=== PATIENT | female | born 1960 | race Caucasian/White ===

== ENCOUNTER 2016-07-27 09:56 | Outpatient (CLI) | payer OTHER ==
[2015-05-18 10:24] VITALS: BMI 38.8
[2016-07-27 12:48] LABS: BASOPHILS # (AUTO) 0.1 K/uL (0-0.2); BASOPHILS % (AUTO) 0.9 % (0.0-3.0); EOSINOPHILS # (AUTO) 0.1 K/ul (0.0-0.7); EOSINOPHILS % (AUTO) 1.6 % (0.0-7.0); HEMATOCRIT 38.4 % (37.0-47.0); HEMOGLOBIN 12.8 g/dl (12.0-16.0); IMMATURE GRANULOCYTE % (AUTO) 0.1 % (0.0-5.0); LYMPHOCYTES # (AUTO) 1.2 K/uL (0.60-3.4); LYMPHOCYTES % (AUTO) 14.1 (10.0-50.0); MEAN CORPUSCULAR HEMOGLOBIN 28.4 pg (27.0-31.0); MEAN CORPUSCULAR HGB CONC 33.3 (31.8-35.4); MEAN CORPUSCULAR VOLUME 85.1 fl (81.0-99.0); MONOCYTES # (AUTO) 0.9 K/uL (0.4-2.0); MONOCYTES % (AUTO) 10.2 (0-10); NEUTROPHILS # (AUTO) 6.4 K/ul (2.0-6.9); NEUTROPHILS % (AUTO) 73.1; PLATELET COUNT 265 10^3/uL (140-440); RED BLOOD COUNT 4.51 10^6/ul (4.20-5.40); WHITE BLOOD COUNT 8.79 K/ul (4.6-10.2)
[2016-07-27 13:36] LABS: ALBUMIN 3.7 g/dL (3.4-5.0); ALBUMIN/GLOBULIN RATIO 0.97; ANION GAP 11.4; BILIRUBIN,TOTAL 0.53 mg/dL (0.00-1.20); BUN/CREATININE RATIO 20.27; CALCIUM 10.5 mg/dL (8.2-10.2); CHOL/HDL RATIO 4.1 (4.5-5.5); CREATININE 0.74 mg/dL (0.60-1.30); POTASSIUM 3.4 mmol/L (3.5-5.10); TOTAL PROTEIN 7.5 g/dL (6.4-8.2)
== END 2016-07-27 09:57 | disposition home or self-care (01) ==
LOC: LAB 09:56
PROVIDERS: ATTEND Emergency Medicine
DX: E78.5 Hyperlipidemia, unspecified (principal); I10 Essential (primary) hypertension; M19.90 Unspecified osteoarthritis, unspecified site
CPT/HCPCS: 36415; 80053; 80061; 84439; 84443; 85025

== ENCOUNTER 2016-07-29 13:36 | Emergency (ER) ==
[2016-07-29 13:41] VITALS: BP 205/133; TEMP 97.7; BMI 36.8
[2016-07-29] MEDS ORDERED: VASOTEC IV IVP STA (13:51)
[2016-07-29] MEDS ORDERED: TRANDATE IVP STA (13:52)
[2016-07-29] MEDS ORDERED: NORVASC PO STA (13:52)
[2016-07-29 14:11] LABS: BASOPHILS # (AUTO) 0.1 K/uL (0-0.2); BASOPHILS % (AUTO) 0.6 % (0.0-3.0); EOSINOPHILS # (AUTO) 0.1 K/ul (0.0-0.7); EOSINOPHILS % (AUTO) 0.8 % (0.0-7.0); HEMATOCRIT 35.7 % (37.0-47.0); IMMATURE GRANULOCYTE % (AUTO) 0.2 % (0.0-5.0); LYMPHOCYTES % (AUTO) 11.8 (10.0-50.0); MEAN CORPUSCULAR HEMOGLOBIN 28.6 pg (27.0-31.0); MEAN CORPUSCULAR HGB CONC 33.6 (31.8-35.4); MONOCYTES # (AUTO) 0.9 K/uL (0.4-2.0); MONOCYTES % (AUTO) 10.5 (0-10); NEUTROPHILS # (AUTO) 6.5 K/ul (2.0-6.9); NEUTROPHILS % (AUTO) 76.1; PLATELET COUNT 240 10^3/uL (140-440)
[2016-07-29 14:51] LABS: ALBUMIN 3.7 g/dL (3.4-5.0); ALBUMIN/GLOBULIN RATIO 1.09; ANION GAP 12.3; BILIRUBIN,TOTAL 0.72 mg/dL (0.00-1.20); BUN/CREATININE RATIO 17.33; CALCIUM 10.3 mg/dL (8.2-10.2); CREATININE 0.75 mg/dL (0.60-1.30); POTASSIUM 3.3 mmol/L (3.5-5.10); TOTAL PROTEIN 7.1 g/dL (6.4-8.2); TROPONIN I 0.046 ng/ml (0.0000-0.4000)
[2016-07-29] MEDS ORDERED: APRESOLINE PO STA (14:56)
[2016-07-29 15:44] LABS: BILIRUBIN,URINE 1+ (NEGATIVE); KETONES,URINE 2+ (NEGATIVE); LEUKOCYTE ESTERASE ,URINE Trace (NEGATIVE); NITRITE,URINE Negative (NEGATIVE); PROTEIN,URINE 1+ (NEGATIVE); URINE, BLOOD Trace-intact (NEGATIVE)
[2016-07-29 15:45] LABS: ADD URINE MICROSCOPIC YES
--- NOTE | 2016-07-29 16:00 | ED.PDOC ---
General ED Provider: Dr. ASTRID SANDRA-ER Chief Complaint: Hypertension Stated Complaint: my bp is up--i was seen by dr pretty and given 2 little pills Time Seen by Physician: 13:40 Mode of Arrival: Walk-In Information Source: Patient Exam Limitations: No limitations [facility] and Triage Documentation Reviewed and Agree: Yes Cardiovascular Complaint Exam - Hypertension Complaint/Exam Onset/Duration: today Timing: Constant Reported B/P Prior to Arrival: 230/130 Aggravating: Reports: None Alleviating: Reports: None Associated Signs and Symptoms: Denies: Chest pain, Vision changes, Anxiety, Recent stress, Headache, Numbness, Tingling, Weakness, Dizziness, Short of air, Swelling Related History: Reports: Similar episode Cardiac Risk Factors: Reports: Hypertension Recent Change in Medications: No A/V Nicking: No Papilledema Present: No JVD Present: No Carotid Bruit Present: No Femoral Pulses Bounding: Yes Differential Diagnoses: Hypertension, Hypertensive Crisis Quality Indicator For Non-Traumatic Chest Pain/Syncope: EKG Performed Review of Systems - Review Of Systems Constitutional: Reports: No symptoms Eyes: Reports: No symptoms Ears, Nose, Mouth, Throat: Reports: No symptoms Respiratory: Reports: No symptoms Cardiac: Reports: No symptoms, Chest pain GI: Reports: No symptoms : Reports: No symptoms Musculoskeletal: Reports: No symptoms Skin: Reports: No symptoms Neurological: Reports: No symptoms Endocrine: Reports: No symptoms Hematologic/Lymphatic: Reports: No symptoms All Other Systems: Reviewed and Negative Past Medical History - Past Medical History Previously Healthy: Yes Endocrine: Reports: None Cardiovascular: Reports: Hypertension, CHF Respiratory: Reports: COPD Hematological: Reports: None Gastrointestinal: Reports: None Genitourinary: Reports: None Neuro/Psych: Reports: Migraine Musculoskeletal: Reports: None Cancer: Reports: None Last Menstrual Period: N/A - Surgical History General Surgical History: Reports: (x2), Orthopedic ( Left Knee Surgery) - Family History Family History: Reports: Unknown - Social History Smoking Status: Never smoker Hx Substance Use: No Alcohol Screening: None Lives: With family - Immunizations Tetanus Shot up to Date: Yes Physical Exam - Physical Exam Appearance: Well-appearing, No pain distress, Well-nourished Eyes: ALLEGRA, EOMI, Conjunctiva clear ENT: Ears normal, Nose normal, Oropharynx normal Neck: Supple Respiratory: Airway patent, Breath sounds clear, Breath sounds equal, Respirations nonlabored Cardiovascular: RRR, Pulses normal, No rub, No murmur GI/: Soft, Nontender, No masses, Bowel sounds normal, No Organomegaly Musculoskeletal: Normal strength, ROM intact, No edema, No calf tenderness Skin: Warm, Dry, Normal color Neurological: Sensation intact, Motor intact, Reflexes intact, Cranial nerves intact, Alert, Oriented Psychiatric: Affect appropriate, Mood appropriate Re-Evaluation - Re-Evaluation Time of Re-Evaluation: 15:59 Status: Improved (bp 160/90--denies cp or lynch) Vital Signs Stable: Yes Pain Level: 0 Appearance: NAD Lungs: Clear Skin: Warm and Dry Neuro: Alert and Oriented X3 CV: RRR Critical Care Note - Critical Care Note Total Time (mins): 0 Course - Course Hematology/Chemistry: 07/29/16 13:55 07/29/16 13:55 Orders, Labs, Meds: Lab Review 07/29/16 07/29/16 13:55 15:30 WBC 8.50 RBC 4.20 Hgb 12.0 Hct 35.7 L MCV 85.0 MCH 28.6 MCHC 33.6 RDW Coeff of Jada 13.6 Plt Count 240 Immature Gran % (Auto) 0.2 Neut % (Auto) 76.1 Lymph % (Auto) 11.8 [place] % (Auto) 10.5 H Eos % (Auto) 0.8 Baso % (Auto) 0.6 Immature Gran # (Auto) 0.0 Neut # 6.5 Lymph # 1.0 [place] # 0.9 Eos # 0.1 Baso # 0.1 Sodium 143 Potassium 3.3 L Chloride 106 Carbon Dioxide 28 Anion Gap 12.3 BUN 13 Creatinine 0.75 Estimated GFR (MDRD) 80.00 BUN/Creatinine Ratio 17.33 Glucose 94 Calcium 10.3 H Total Bilirubin 0.72 AST 24 ALT 25 Alkaline Phosphatase 164 H Total Creatine Kinase 102 Troponin I 0.0460 Total Protein 7.1 Albumin 3.7 Globulin 3.4 Albumin/Globulin Ratio 1.09 TSH 0.726 Free T4 1.17 Urine Color Yellow Urine Clarity Clear Urine pH 6.0 Ur Specific Gerry 1.025 Urine Protein 1+ Urine Glucose (UA) Negative Urine Ketones 2+ Urine Blood Trace-intact Urine Nitrite Negative Urine Bilirubin 1+ Urine Urobilinogen 0.2 Ur Leukocyte Esterase Trace Urine Microscopic RBC 0-2 Urine Microscopic WBC 0-2 Ur Squamous Epith Cells 0-2 Calcium Oxalate Crystal 1+ Orders Category Date Time Status EKG-(ED ONLY) Stat CARDIO 07/29/16 13:51 Completed ED IV/MEDIPORT/POWERPORT .ONCE EMERGENCY 07/29/16 13:51 Active CBC W/ AUTO DIFF Stat LAB 07/29/16 13:55 Completed COMPREHENSIVE METABOLIC PANEL Stat LAB 07/29/16 13:55 Completed CREATINE KINASE Stat LAB 07/29/16 13:55 Completed FREE T4 (FREE THYROXINE) Stat LAB 07/29/16 13:55 Completed THYROID STIMULATING HORMONE Stat LAB 07/29/16 13:55 Completed TROPONIN I Stat LAB 07/29/16 13:55 Completed URINALYSIS C & S IF INDICATED Stat LAB 07/29/16 15:30 Completed 0.9 % Sodium Chloride [Saline Flush] MEDS 07/29/16 13:51 Active 1 syr IVF PRN PRN Amlodipine Besylate [Norvasc] MEDS 07/29/16 13:52 Discontinued 5 mg PO ONCE STA Enalaprilat Dihydrate [Vasotec IV] MEDS 07/29/16 13:51 Discontinued 2.5 mg IVP ONCE STA Hydralazine HCl [Apresoline] MEDS 07/29/16 14:56 Discontinued 50 mg PO ONCE STA Labetalol HCl [Trandate] MEDS 07/29/16 13:52 Discontinued 20 mg IVP ONCE STA Medications Generic Name Dose Route Start Last Admin Trade Name Freq PRN Reason Stop Dose Admin Sodium Chloride 1 syr 07/29/16 13:51 07/29/16 14:18 Saline Flush IVF 1 syr PRN PRN Administration To flush IV Discontinued Medications Generic Name Dose Route Start Last Admin Trade Name Freq PRN Reason Stop Dose Admin Amlodipine Besylate 5 mg 07/29/16 13:52 07/29/16 14:18 Norvasc PO 07/29/16 13:53 5 mg ONCE STA Administration Enalaprilat 2.5 mg 07/29/16 13:51 07/29/16 14:21 Vasotec Iv IVP 07/29/16 13:52 2.5 mg ONCE STA Administration Hydralazine HCl 50 mg 07/29/16 14:56 07/29/16 15:16 Apresoline PO 07/29/16 14:57 50 mg ONCE STA Administration Labetalol HCl 20 mg 07/29/16 13:52 07/29/16 14:31 Trandate IVP 07/29/16 13:53 20 mg ONCE STA Administration Vital Signs: Temp Pulse Resp BP Pulse Ox 07/29/16 13:37 97.7 F 85 20 205/133 H 94 L HAY Risk Score HAY Risk Score: Risk Score Odds of by 30D 0 0.1 (0.1-0.2) 1 0.3 (0.2-0.3) 2 0.4 (0.3-0.5) 3 0.7 (0.6-0.9) 4 1.2 (1.0-1.5) 5 2.2 (1.9-2.6) 6 3.0 (2.5-3.6) 7 4.8 (3.8-6.1) Departure - Departure Time of Disposition: 16:00 Disposition: HOME SELF-CARE Discharge Problem: HTN (hypertension) Qualifiers: Hypertension type: essential hypertension Qualifier Code: (I10) Essential ( primary) hypertension Instructions: Chronic Hypertension (ED) Condition: Good Pt referred to PMD for follow-up: Yes Additional Instructions: zestril 20mg q daily #30..procardia xl 30mg q daily 30--f/u with your doctor closely Allergies/Adverse Reactions: Allergies No Known Allergies Allergy (Verified 07/29/16 13:43) Home Medications: Ambulatory Orders 1 [No Reported Medications] 07/29/16 Disposition Discussed With: Patient
== END 2016-07-29 16:16 | disposition home or self-care (01) ==
LOC: ED 13:36
DX: I10 Essential (primary) hypertension (principal); I50.9 Heart failure, unspecified; J44.9 Chronic obstructive pulmonary disease, unspecified
CPT/HCPCS: 36415; 80053; 81001; 82550; 84439; 84443; 84484; 85025; 93005; 93010; 96374; 96375; 99283

== ENCOUNTER 2017-05-11 11:40 | Outpatient (CLI) | END 2017-05-11 11:41 | disposition home or self-care (01) | LOC: RHC-LAB 11:40 | PROVIDERS: ATTEND Emergency Medicine | DX: E78.5 Hyperlipidemia, unspecified (principal); I10 Essential (primary) hypertension; E66.9 Obesity, unspecified | CPT/HCPCS: 36415; 80053; 80061; 84443; 85025 ==

== ENCOUNTER 2017-05-13 09:21 | Outpatient (CLI) ==
--- NOTE | 2017-05-13 09:49 | DI ---
EXAM: PA and lateral views of the chest HISTORY: Acute respiratory infection. COMPARISON: Chest x-ray 02/18/2015 and multiple priors FINDINGS: The cardiomediastinal silhouette is upper limit of normal. There is no pneumothorax or pl eural effusion. There is no consolidation, nodule or mass. There is mild interstitial ground-glass i n the lower lobes predominantly. The osseous structures demonstrate degenerative disease of the spine . IMPRESSION: Mild interstitial predominantly lower lobe ground-glass opacities may represent atypical infection versus edema.
== END 2017-05-13 09:22 | disposition home or self-care (01) ==
LOC: RAD 09:21
PROVIDERS: ATTEND Emergency Medicine
DX: J06.9 Acute upper respiratory infection, unspecified (principal)

== ENCOUNTER 2017-05-15 07:11 | Inpatient (IN) ==
[2017-05-15] MEDS ORDERED: NITROSTAT SL STA (08:46)
--- NOTE | 2017-05-15 09:05 | CT ---
EXAM: CTA chest with contrast HISTORY: Dyspnea TECHNIQUE: Multi-slice transaxial helical PE protocol. Multiplanar MIP and 3D volume rendered image s are provided. COMPARISON: Chest radiograph 05/13/2017. FINDINGS: There are no main, lobar, or segmental pulmonary arterial filling defects.The main pulmonary artery i s mildly enlarged measuring up to 32 mm in diameter. The heart is enlarged. Small to moderate peric ardial effusion is seen measuring up to 1.6 cm in thickness. Enlarged subcarinal lymph node measures 1.5 cm in short axis. Soft tissue thickening at the bilateral perihilum is seen. Visualized thyroid appears unremarkable. There is no axillary adenopathy. Contrast refluxes into the IVC and hepatic veins. The spleen is on the upper limits of normal in size. Otherwise the partially imaged upper abdomen appears unremarkable. Moderate multilevel thoracic endplate osteophytosis is pr esent. Diffuse bilateral ground-glass opacities are seen throughout the lungs. Smooth interlobular septal t hickening is also seen throughout the lungs. Trace bilateral layering pleural effusions is present. Small filling defect in the in the distal trachea is seen. IMPRESSION: 1. No evidence of pulmonary embolus. 2. Congestive heart failure with diffuse bilateral mixed alveolar and interstitial edema. 3. Trace bilateral layering pleural effusions. 4. Cardiomegaly with small to moderate-sized pericardial effusion. 5. Subcarinal adenopathy, likely reactive. 6. Small filling defect in the distal trachea which most likely represents mucous. 7. Other incidental findings as above.
[2017-05-15] MEDS ORDERED: LASIX IVP STA ×2 (09:08→09:14)
--- NOTE | 2017-05-15 09:11 | ED.PDOC ---
General ED Provider: Dr. ASTRID SANDRA-ER Chief Complaint: Shortness of Air Stated Complaint: im sob for 2 days Time Seen by Physician: 07:15 Mode of Arrival: Ambulance Information Source: Patient Exam Limitations: No limitations [facility] and Triage Documentation Reviewed and Agree: Yes Reviewed sepsis parameters & appropriate labs ordered?: Yes System Inflammatory Response Syndrome: Not Applicable Sepsis Protocol: For patient's 13 years and over: Temp is 96.8 and below OR 101 and greater Pulse >90 BPM Resp >20/minute Acutely Altered Mental Status Are patient's symptoms suggestive of a new infection, such as: -Pneumonia -Skin, Soft Tissue -Endocarditis -UTI -Bone, Joint Infection -Implantable Device -Acute Abdominal Infection -Wound Infection -Meningitis -Blood Stream Catheter Infection -Unknown Respiratory Complaint Exam - Respiratory Complaint/Exam Onset/Duration: 2 DAYS Symptoms Are: Still present Timing: Constant Initial Severity: Mild Current Severity: Moderate Location: Chest Character: Reports: Non-productive cough, Dry cough Alleviating: Reports: None Associated Signs and Symptoms: Reports: Dyspnea. Denies: Rapid breathing, Fever , Chills, Chest pain, Pleuritic chest pain, Wheezing, Hemoptysis, Dizziness, Calf pain, Calf swelling, Edema, URI, Nasal congestion, Hoarseness Related History: Reports: Similar episode History of Healthcare-Acquired Pneumonia: No Pseudomonas Risk Factors: Reports: None Home Oxygen Use: No Recent Stress Test: No Recent Echo/LV Function: No Current Antibiotic Use: No Current Asthma Medication Use: No Respiratory Distress: Mild Inadequate Respiratory Effort: No Dysphagia Present: No Stridor Present: No JVD Present: No Accessory Muscle Use: No Retractions: Not Present Diminished Breath Sounds: No Sinus Tenderness: None Grunting Respirations: No Kussmaul Respirations: No Differential Diagnoses: CHF, Pulmonary Edema, COPD Exacerbation, Pulmonary Embolism Non-Traumatic Chest Pain Syncope: EKG Performed Review of Systems - Review Of Systems Constitutional: Reports: No symptoms Eyes: Reports: No symptoms Ears, Nose, Mouth, Throat: Reports: No symptoms Respiratory: Reports: Short of air Cardiac: Reports: No symptoms, Chest pain GI: Reports: No symptoms : Reports: No symptoms Musculoskeletal: Reports: No symptoms Skin: Reports: No symptoms Neurological: Reports: No symptoms Endocrine: Reports: No symptoms Hematologic/Lymphatic: Reports: No symptoms All Other Systems: Reviewed and Negative Past Medical History - Past Medical History Previously Healthy: Yes Endocrine: Reports: None Cardiovascular: Reports: Hypertension, CHF Respiratory: Reports: COPD Hematological: Reports: None Gastrointestinal: Reports: None Genitourinary: Reports: None Neuro/Psych: Reports: Migraine Musculoskeletal: Reports: None Cancer: Reports: None Last Menstrual Period: 2005 - Surgical History General Surgical History: Reports: (x2), Orthopedic ( Left Knee Surgery) - Family History Family History: Reports: Unknown - Social History Smoking Status: Never smoker Hx Substance Use: No Alcohol Screening: None Physical Exam - Physical Exam Appearance: Well-appearing, No pain distress, Well-nourished Eyes: ALLEGRA, EOMI, Conjunctiva clear ENT: Ears normal, Nose normal, Oropharynx normal Neck: Supple Respiratory: Airway patent, Breath sounds clear, Breath sounds equal, Respirations nonlabored, Crackles Cardiovascular: RRR, Pulses normal, No rub, No murmur GI/: Soft, Nontender, No masses, Bowel sounds normal, No Organomegaly Musculoskeletal: Normal strength, ROM intact, No edema, No calf tenderness Skin: Warm Neurological: Sensation intact Psychiatric: Affect appropriate, Mood appropriate, Anxious Interpretation - Radiology Interpretation Radiology Interpretation By: Radiologist Radiology Results: Positive Exam Interpreted: CT Scan - EKG Interpretation Time of EKG #1: 09:11 Rate: Normal Rhythm: Sinus Ectopy: None Aspers: NL ST Segment: Normal Physician Notification - Case Discussed Physician Notified: dr pretty Time of Notification: 09:11 Critical Care Note - Critical Care Note Total Time (mins): 45 Course - Course Hematology/Chemistry: 05/15/17 07:25 05/15/17 07:25 Orders, Labs, Meds: Lab Review 05/15/17 05/15/17 05/15/17 07:13 07:25 07:25 WBC 11.38 H RBC 4.02 L Hgb 11.6 L Hct 35.4 L MCV 88.1 MCH 28.9 MCHC 32.8 RDW Coeff of Jada 13.5 Plt Count 247 Immature Gran % (Auto) 0.3 Neut % (Auto) 79.3 Lymph % (Auto) 10.5 [place] % (Auto) 8.7 Eos % (Auto) 0.5 Baso % (Auto) 0.7 Immature Gran # (Auto) 0.0 Neut # (Auto) 9.0 H Lymph # (Auto) 1.2 [place] # (Auto) 1.0 Eos # (Auto) 0.1 Baso # (Auto) 0.1 Puncture Site Lr O2 Saturation 88.0 L ABG pH 7.494 H ABG pCO2 32.6 L ABG pO2 50.0 L* ABG HCO3 25.1 ABG Total CO2 26 ABG Base Excess 2 [place] Test + FiO2 % 21.0 Sodium 141 Potassium 4.3 Chloride 108 H Carbon Dioxide 22 Anion Gap 15.3 BUN 26 H Creatinine 0.86 Estimated GFR (MDRD) 68.00 BUN/Creatinine Ratio 30.23 Glucose 112 H Calcium 10.2 Total Bilirubin 0.8 AST 21 ALT 31 Alkaline Phosphatase 132 H Total Creatine Kinase 32 Troponin I 0.0320 B-Natriuretic Peptide Total Protein 7.0 Albumin 3.5 Globulin 3.5 Albumin/Globulin Ratio 1.00 Influ A Molecular Assay Influ B Molecular Assay 05/15/17 05/15/17 07:25 07:25 WBC RBC Hgb Hct MCV MCH MCHC RDW Coeff of Jada Plt Count Immature Gran % (Auto) Neut % (Auto) Lymph % (Auto) [place] % (Auto) Eos % (Auto) Baso % (Auto) Immature Gran # (Auto) Neut # (Auto) Lymph # (Auto) [place] # (Auto) Eos # (Auto) Baso # (Auto) Puncture Site O2 Saturation ABG pH ABG pCO2 ABG pO2 ABG HCO3 ABG Total CO2 ABG Base Excess [place] Test FiO2 % Sodium Potassium Chloride Carbon Dioxide Anion Gap BUN Creatinine Estimated GFR (MDRD) BUN/Creatinine Ratio Glucose Calcium Total Bilirubin AST ALT Alkaline Phosphatase Total Creatine Kinase Troponin I B-Natriuretic Peptide 1396 H Total Protein Albumin Globulin Albumin/Globulin Ratio Influ A Molecular Assay Negative by naat Influ B Molecular Assay Negative by naat Orders Category Date Time Status ABG DRAW REQUEST Stat CARDIO 05/15/17 07:14 Completed EKG-(ED ONLY) Stat CARDIO 05/15/17 07:14 Completed NPO REMINDER: IMAGING ONCE CARE 05/15/17 07:16 Active IV [ED IV/MEDIPORT/POWERPORT] .ONCE EMERGENCY 05/15/17 07:15 Active ABG Stat LAB 05/15/17 07:13 Completed BLOOD CULTURE (ED ONLY) Stat LAB 05/15/17 07:25 Received BNP [B-TYPE NATRIURETIC PEPTIDE] Stat LAB 05/15/17 07:25 Completed CBC W/ AUTO DIFF Stat LAB 05/15/17 07:25 Completed COMPREHENSIVE METABOLIC PANEL Stat LAB 05/15/17 07:25 Completed CREATINE KINASE Stat LAB 05/15/17 07:25 Completed FLU A/B MOLECULAR Stat LAB 05/15/17 07:25 Completed TROPONIN I Stat LAB 05/15/17 07:25 Completed 0.9 % Sodium Chloride [Saline Flush] MEDS 05/15/17 07:15 Active 1 syr IVF PRN PRN Furosemide [Lasix] MEDS 05/15/17 09:08 Stat 40 mg IVP ONCE STA Nitroglycerin [Nitrostat] MEDS 05/15/17 08:46 Discontinued 0.4 mg SL ONCE STA CT CHEST PE PROTOCOL Stat RADS 05/15/17 07:16 Completed Medications Generic Name Dose Route Start Last Admin Trade Name Freq PRN Reason Stop Dose Admin Furosemide 40 mg 05/15/17 09:08 Lasix IVP 05/15/17 09:09 ONCE STA Sodium Chloride 1 syr 05/15/17 07:15 Saline Flush IVF PRN PRN To flush IV Discontinued Medications Generic Name Dose Route Start Last Admin Trade Name Freq PRN Reason Stop Dose Admin Nitroglycerin 0.4 mg 05/15/17 08:46 05/15/17 08:51 Nitrostat SL 05/15/17 08:47 0.4 mg ONCE STA Administration Vital Signs: Temp Pulse Resp BP Pulse Ox 05/15/17 07:12 98.4 F 82 22 190/135 H 96 Departure - Departure Time of Disposition: 09:11 Disposition: ADMITTED INPATIENT Discharge Problem: Acute respiratory failure Qualifiers: Respiratory failure complication: hypoxia Qualified Code(s): J96.01 - Acute respiratory failure with hypoxia Congestive heart failure (CHF) Qualifiers: Heart failure type: unspecified Heart failure chronicity: acute on chronic Qualified Code(s): I50.9 - Heart failure, unspecified Condition: Stable Pt referred to PMD for follow-up: Yes IPMP verified?: No Allergies/Adverse Reactions: Allergies No Known Allergies Allergy (Verified 07/29/16 13:43) Home Medications: Ambulatory Orders Glycopyrrolate/Formoterol Fum [Bevespi Aerosphere Inhaler] 10.7 gm IH DAILY Disposition Discussed With: Patient
[2017-05-15 10:57] VITALS: BMI 40.0
[2017-05-15] MEDS: PROTONIX PO SCH (17:40)
[2017-05-15] MEDS: COREG PO SCH (17:40)
[2017-05-15] MEDS ORDERED: PREDNISONE PO SCH (21:00)
[2017-05-15] MEDS ORDERED: ZESTRIL PO SCH (21:00)
[2017-05-15] MEDS ORDERED: NON-FORMULARY MEDICATION (Lisinopril [Lisinopril] 20 MG) PO SCH (21:00)
[2017-05-15] MEDS: BENADRYL PO SCH (21:08)
[2017-05-15] MEDS: KEFLEX PO SCH (21:09)
[2017-05-16] MEDS: PROTONIX PO SCH (05:37)
[2017-05-16] MEDS ORDERED: ZESTRIL PO SCH (06:35)
[2017-05-16] MEDS ORDERED: CATAPRES PO PRN (08:17)
[2017-05-16] MEDS ORDERED: CATAPRES ONE (08:21)
[2017-05-16] MEDS: ZESTRIL PO SCH ×2 (08:24→21:15)
[2017-05-16] MEDS: KEFLEX PO SCH ×2 (08:25→21:15)
[2017-05-16] MEDS: COREG PO SCH ×2 (08:25→16:48)
[2017-05-16] MEDS: PREDNISONE PO SCH ×2 (08:25→16:48)
[2017-05-16] MEDS: LOVENOX SUBCUT SCH (08:29)
[2017-05-16] MEDS: LASIX IVP SCH (09:17)
--- NOTE | 2017-05-16 09:29 | ECHO2D ---
Date of Exam: 05/16/17 Ordering Physician: DR. ALINE MONREAL Room #: SCU 1 Reason for Echo: CHF, SMALL PERICARDIAL EFFUSION M-Mode Normal Adult Results LV Dimensions Normal Adult Results AoV Opening excursions >1.6 >1.6 LVEDD-base- 3.5-5.8 5.3 Ao root dimensions 2.0-3.7 3.4 LVESD-base- 3.1-4.6 L. Atrium dimensions 1.9-3.8 5.3 Post. Wall thickness 0.8-1.1 1.4 IV septum (thickness) 0.7-1.2 1.4 Post. Wall excursion 0.72-1.3 0.8 Septal motion 0.7 Systolic motion R. Ventricular cavity 1.5-2.0 NORMAL LVEF 60% 45 - 50% Paradoxical septal wall motion NORMAL 2-D : MILDLY HYPOKINETIC LEFT VENTRICLE (STIFF), ENLARGED LEFT ATRIAL CAVITY, NORMAL VALVES, NO THROMBUS, SMALL PERICARDIAL EFFUSION M-MODE: MV: NORMAL AV: NORMAL TV: NORMAL PV: CHAMBER SIZE: ENLARGED LEFT ATRIAL CAVITY WALL MOTION: STIFF LEFT VENTRICLE PERICARDIUM: NORMAL INTERPRETATION: 1. MILD TO MODERATE LEFT VENTRICULAR HYPERTROPHY WITH ENLARGED LEFT ATRIAL CAVITY 2. SMALL PERICARDIAL EFFUSION 3. NORMAL VALVES 4. MILDLY HYPOKINETIC STIFF LEFT VENTRICLE WITH EJECTION FRACTION 45 TO 50% MTDD
--- NOTE | 2017-05-16 13:25 | US ---
EXAM: Ultrasound renal Doppler. HISTORY: Elevated blood pressure. COMPARISON: None available. TECHNIQUE: Ken-scale and color Doppler images. FINDINGS: Right kidney measures 12.5 cm in length. There is no hydronephrosis. Peak systolic velocity measurement in the right renal artery are 0.3, 0.2 and 0.3 meters per second i n the origin, midportion and distal portion respectively. Right renal artery to aortic ratios measur e 1.0, 0.66 and 1.0. Right renal resistive index measures 0.68. Left kidney measures 10.3 cm in length. There is no hydronephrosis. Peak systolic velocity measurements in the left renal artery are 0.2, 0.4 and 0.2 meters per second i n the origin, midportion and distal portion respectively. Left renal artery to aortic ratios measure 0.66, 1.3 and 0.66. Left renal resistive index measures 0.54. Venous outflow is not imaged. IMPRESSION: No evidence for hemodynamically significant stenosis in the right or left renal artery.
--- NOTE | 2017-05-16 13:35 | US ---
EXAM: Renal ultrasound. History: Hypertension. Technique: Multiple sonographic images through the kidneys were obtained. Color duplex Doppler was used to interrogate vascular flow. Findings: The right kidney measures 13.1 cm in long length demonstrating normal cortical echogenicity without e vidence for hydronephrosis, mass or shadowing calculus. The visualized bladder demonstrates no gross abnormality. The left kidney measures 11.9 cm in long length demonstrating normal cortical echogenicity without ev idence for hydronephrosis, mass or shadowing calculus. Impression: Sonographically normal kidneys
[2017-05-16] MEDS: BENADRYL PO SCH (21:15)
[2017-05-17] MEDS ORDERED: TYLENOL PO STA (03:57)
[2017-05-17] MEDS: PROTONIX PO SCH (05:54)
[2017-05-17] MEDS ORDERED: DECADRON 4 MG/ML SDV IVP STA (08:14)
[2017-05-17] MEDS: LASIX IVP SCH (08:56)
[2017-05-17] MEDS: LOVENOX SUBCUT SCH (08:57)
[2017-05-17] MEDS: ZANTAC PO SCH ×2 (08:58→16:46)
[2017-05-17] MEDS: KEFLEX PO SCH ×2 (08:58→20:26)
[2017-05-17] MEDS: PREDNISONE PO SCH ×2 (08:59→16:45)
[2017-05-17] MEDS: ZESTRIL PO SCH ×2 (08:59→20:26)
[2017-05-17] MEDS: COREG PO SCH ×2 (08:59→16:45)
[2017-05-17] MEDS: BENADRYL PO SCH (20:26)
[2017-05-17] MEDS ORDERED: GI COCKTAIL PO STA (20:55)
[2017-05-18] MEDS ORDERED: ZOFRAN 4 MG/2 ML IVP STA (04:45)
[2017-05-18] MEDS: ZANTAC PO SCH ×2 (05:32→17:20)
[2017-05-18] MEDS: PROTONIX PO SCH (05:32)
[2017-05-18] MEDS ORDERED: TYLENOL PO STA (08:01)
--- NOTE | 2017-05-18 08:20 | PN ---
DATE OF SERVICE: 05/16/17 SUBJECTIVE: The patient is a 56 year old female admitted with acute heart failure,BNP was 1, 300. CT chest showed the pericardial effusion, moderate and pulmonary effusion. The patient was then getting the Lisinopril. The blood pressure is still elevated, did not help much. Did get some breath treatments. Prednisone and Keflex been continued. REVIEW OF SYSTEMS: CONSTITUTIONAL: No fever, no chills. HEENT: Normal. ENDOCRINE: No weight gain, no weight loss. CVS: No angina symptoms. No CHF symptoms. No palpitations. No atypical chest pain for CAD. No shortness of breath. No PND, no orthopnea. RESPIRATORY: No cough, no hemoptysis. GI: No nausea, no vomiting. No abdominal pain. : No hematuria. No polyuria. MUSCULOSKELETAL: No joint swelling. PSYCHIATRIC: Not anxious. No depression. No suicidal thoughts. No homicidal thoughts. SKIN: Intact. No rash. PHYSICAL EXAMINATION: V/S: Blood pressure 154/92, respiratory rate 20, heart rate 68, temperature 98.0. HEENT: Normocephalic, atraumatic. Mucosa dry. Pallor positive. NECK: Supple. No JVD, no carotid bruit. No lymphadenopathy. LUNGS: Decreased and basilar crackles. Mild wheezing. No rales or rhonchi. HEART: S1, S2 normal. No S3. No murmur, gallop or regurgitation. ABDOMEN: Soft, nontender. Bowel sounds active. No rigidity. No rebound or guarding. No CVA tenderness. EXTREMITIES: No pedal edema. No clubbing or cyanosis MUSCULOSKELETAL: No joint swelling. NEUROLOGIC: Awake, alert, oriented times three. No focal deficit. LYMPHATIC: No lymph nodes palpable. SKIN: Intact. LABS: WBC 11.03, hgb 11.3, hct 33.5, plt count 245, sodium 140, potassium 3.8, chloride 106, bicarb 25, BUN 21, creatinine 0.71, glucose 114. ASSESSMENT: 1. Acute systolic heart failure, BNP 3096, ejection fraction per Dr. Rainey is 48. 2. Pulmonary congestion 3. Upper respiratory infection 4. Hypertension, uncontrolled and Labile 5. Noncompliant with medication 6. Obesity 7. Anemia PLAN: 1. Continue Coreg 12.5 twice a day 2. Will add the Clonidine 0.2mg twice a day 3. Lovenox for the DVT prophylaxis 4. Lasix 40mg PO daily TIME SPENT: More than 35 minutes MTDD
[2017-05-18] MEDS: KEFLEX PO SCH ×2 (08:38→20:16)
[2017-05-18] MEDS: ZESTRIL PO SCH ×2 (08:38→20:16)
[2017-05-18] MEDS: COREG PO SCH ×2 (08:38→17:21)
[2017-05-18] MEDS: LASIX TAB PO SCH (08:38)
[2017-05-18] MEDS: PREDNISONE PO SCH ×2 (08:39→17:21)
[2017-05-18] MEDS: LOVENOX SUBCUT SCH (08:39)
[2017-05-18] MEDS: ATROVENT HFA IH SCH ×3 (08:51→20:16)
--- NOTE | 2017-05-18 09:31 | HP ---
DATE OF SERVICE: 05/15/17 CHIEF COMPLAINT: Shortness of breath HISTORY OF PRESENT ILLNESS: This is a 56 year old female with a history of uncontrolled hypertension, history of CHF and pericardial effusion. The patient was seen in the office last week for the upper respiratory infection, was started on the antibiotics Keflex and steroids, did not get better shortness of breath was getting worse. Still coughing and congested and even short of breath at rest. At that time called 911 and the patient was brought to the emergency room and was seen by . Blood pressure was 190/135. Labs showed WBC 11,000 with left shift. ABG pH 7.494,pCO2 32.6, pO2 50, BNP [address] chest showed pulmonary congestion. At that time the patient being admitted to the hospital for the acute CHF and hypoxemic respiratory failure. REVIEW OF SYSTEMS: CONSTITUTIONAL: No fever, no chills. Weakness and tiredness. HEENT: Normal. ENDOCRINE: No weight gain; no weight loss. CVS: No chest pain. No PND, no orthopnea. Shortness of breath. No PND, no orthopnea. RESPIRATORY: Cough, no congestion. No hemoptysis. GI: No nausea, no vomiting. No abdominal pain. No melena. : No hematuria. No polyuria. MUSCULOSKELETAL: No joint swelling. PSYCHIATRIC: Not anxious. No depression. No suicidal thoughts. No homicidal thoughts. SKIN: Intact, no open lesions. PAST MEDICAL HISTORY: Coronary artery disease Angina since 2013 Cardiac cath 2011 COPD History of pericardial effusion Hypertension uncontrolled Dyslipidemia Noncompliance with medication Osteoarthritis DJD spine PAST SURGICAL HISTORY: None PERSONAL HISTORY: The patient does not smoke or drink. Family history is significant for diabetes and CHF. MEDICATIONS: Lisinopril Coreg Keflex Prednisone Bevespi Aerophere Inhaler Benadryl ALLERGIES: No known drug allergies PHYSICAL EXAMINATION: V/S: Blood pressure 190/135, respiratory rate 22, heart rate 82, temperature 98.4 and saturation 96%. HEENT: Atraumatic, normocephalic. No scleral icterus. Pallor positive. Mucosa dry. NECK: Supple. No JVD, no bruit. No lymphadenopathy. No thyromegaly. HEART: S1, S2 normal. No murmur. No cyanosis or clubbing. No ascites. LUNGS: Decreased and some crackles. No rales or rhonchi. ABDOMEN: Soft, nontender. Bowel sounds are active. No CVA tenderness. No rigidity or guarding. EXTREMITIES: No pedal edema. No cyanosis or clubbing MUSCULOSKELETAL: Normal joints, no swelling. NEUROLOGIC: The patient is SKIN: Intact; no open lesions. LYMPHATIC: No lymph nodes palpable. LABS: Sodium 141, potassium 4.3, chloride 108, bicarb 22, BUN 26, creatinine 0.86, glucose 112, BNP 3096, WBC 1138, hgb 11.6, hct 35.4, plt count 247. ABG pH 7.494 , PCO2 32.6, pO2 50%. ASSESSMENT: 1. Hypoxemic respiratory failure 2. Acute CHF 3. Uncontrolled hypertension with CHF 4. Upper respiratory infection 5. History of Angina PLAN: 1. Admit to the patient to regular floor 2. CBC and CMP today and daily 3. Cardiac enzymes and Troponin 4. Breathing treatments 5. Lasix 6. Coreg 7. Lisinopril 8. Prednisone 10mg twice a day TIME SPENT: MORE THAN 75 minutes MTDD
--- NOTE | 2017-05-18 11:18 | DI ---
EXAM: Two views of the chest. History: Congestive heart failure, follow-up Comparison: Chest radiograph 05/13/2017, chest CT 05/15/2017 Findings: Heart remains enlarged. Improving pulmonary edema. Scattered areas of subsegmental atele ctasis again seen. Trace bilateral pleural effusions. No pneumothorax. No acute osseous abnormalit ies. Impression: Cardiomegaly with improved pulmonary edema.
[2017-05-18] MEDS: BENADRYL PO SCH (20:16)
[2017-05-19] MEDS ORDERED: TYLENOL PO STA (04:26)
[2017-05-19] MEDS ORDERED: GI COCKTAIL PO STA (04:45)
[2017-05-19] MEDS: LASIX TAB PO SCH (05:39)
[2017-05-19] MEDS: PROTONIX PO SCH (05:39)
[2017-05-19] MEDS: ZANTAC PO SCH (05:39)
[2017-05-19] MEDS: PREDNISONE PO SCH (09:02)
[2017-05-19] MEDS: ZESTRIL PO SCH (09:03)
[2017-05-19] MEDS: ATROVENT HFA IH SCH (09:03)
[2017-05-19] MEDS: COREG PO SCH (09:03)
[2017-05-19] MEDS: LOVENOX SUBCUT SCH (09:04)
[2017-05-19] MEDS: KEFLEX PO SCH (09:04)
[2017-05-19 10:04] VITALS: BP 185/79; TEMP 98.4
--- NOTE | 2017-05-19 11:29 | PN ---
DATE OF SERVICE: 05/17/17 SUBJECTIVE: The patient was admitted with acute hypoxemic respiratory failure and shortness of breath. The patient is up and about still with shortness of breath with minimal exertion. REVIEW OF SYSTEMS: CONSTITUTIONAL: No fever, no chills. HEENT: Normal. ENDOCRINE: No weight gain, no weight loss. CVS: No angina symptoms. No CHF symptoms. No palpitations. No atypical chest pain for CAD. No shortness of breath. No PND, no orthopnea. RESPIRATORY: No cough, no hemoptysis. GI: No nausea, no vomiting. No abdominal pain. : No hematuria. No polyuria. MUSCULOSKELETAL: No joint swelling. PSYCHIATRIC: Not anxious. No depression. No suicidal thoughts. No homicidal thoughts. SKIN: Intact. No rash. PHYSICAL EXAMINATION: V/S: Blood pressure 141/91, respiratory rate 20, heart rate 71, temperature 97.5 with saturation 98% on 2 liters. HEENT: Normocephalic, atraumatic. Mucosa dry. Pallor positive. No icterus. NECK: Supple. No JVD, no carotid bruit. No lymphadenopathy. LUNGS: Decreased and basilar crackles. Clear to auscultation. No rales or rhonchi. HEART: S1, S2 normal. No S3. No murmur, gallop or regurgitation. ABDOMEN: Soft, nontender. Bowel sounds active. No rigidity. No rebound or guarding. No CVA tenderness. EXTREMITIES: No pedal edema. No clubbing or cyanosis MUSCULOSKELETAL: No joint swelling. NEUROLOGIC: Awake, alert, oriented times three. No focal deficit. LYMPHATIC: No lymph nodes palpable. SKIN: Intact. LABS: WBC 12.77, hgb 11.2, hct 33.8, plt count 249, sodium 140, potassium 3.7, chloride 102, bicarb 27, BUN 22, creatinine 0.875 and glucose 100. ASSESSMENT: 1. Acute systolic heart failure 2. Hypertensive emergency 3. Pericardial effusion per CAT scan 4. Non compliance 5. Hypertension 6. Obesity 7. Anemia 8. Dyslipidemia 9. Angina 10.History of heart cath in 2011 PLAN: 1. Continue the Coreg, Lisinopril 2. Keflex PRN 3. Lovenox for the DVT prophylaxis 4. DUO NEBS 5. Out of bed to chair activity as tolerated TIME SPENT: More than 35 minutes MTDD
--- NOTE | 2017-05-19 11:45 | PN ---
DATE OF SERVICE: 05/18/17 SUBJECTIVE: The patient was admitted with the hypoxemic respiratory failure. Up and about walking some. On exertion shortness of breath is present. REVIEW OF SYSTEMS: CONSTITUTIONAL: No fever, no chills. HEENT: Normal. ENDOCRINE: No weight gain, no weight loss. CVS: No angina symptoms. No CHF symptoms. No palpitations. No atypical chest pain for CAD. No shortness of breath. No PND, no orthopnea. RESPIRATORY: No cough, no hemoptysis. GI: No nausea, no vomiting. No abdominal pain. : No hematuria. No polyuria. MUSCULOSKELETAL: No joint swelling. PSYCHIATRIC: Not anxious. No depression. No suicidal thoughts. No homicidal thoughts. SKIN: Intact. No rash. PHYSICAL EXAMINATION: V/S: Blood pressure 152/86, respiratory rate 20, heart rate 56, temperature 98.2 with saturation 97%. HEENT: Normocephalic, atraumatic. Mucosa dry. Pallor positive. No icterus. NECK: Supple. No JVD, no carotid bruit. No lymphadenopathy. LUNGS: Decreased and some basilar crackles. Clear to auscultation. No rales or rhonchi. HEART: S1, S2 normal. No S3. No murmur, gallop or regurgitation. ABDOMEN: Soft, nontender. Bowel sounds active. No rigidity. No rebound or guarding. No CVA tenderness. EXTREMITIES: No pedal edema. No clubbing or cyanosis MUSCULOSKELETAL: No joint swelling. NEUROLOGIC: Awake, alert, oriented times three. No focal deficit. LYMPHATIC: No lymph nodes palpable. SKIN: Intact. Dry. LABS: WBC 12.77, hgb 11.2, hct 33.8, plt count 249, sodium 140, potassium 3.7, chloride 102, bicarb 27, BUN 22, creatinine 0.75 and glucose 100. ASSESSMENT: 1. Hypoxemic respiratory failure 2. Acute systolic heart failure 3. Hypertensive emergency 4. Noncompliance 5. Obesity 6. History of heart cath PLAN: 1. Continue the Coreg, Lisinopril 2. Lovenox 3. DUO NEBS 4. Daily I&O's 5. Out of bed to chair activity as tolerated 6. Will get chest x-ray today. TIME SPENT: More than 35 minutes MTDD
--- NOTE | 2017-06-21 10:47 | DS ---
DATE OF SERVICE: 05/19/17 FINAL DIAGNOSIS: 1. Hypoxemic respiratory failure 2. Acute systolic heart failure 3. Hypertensive emergency 4. Noncompliance 5. Obesity 6. History of heart cath 7. History of pericardial effusion 8. Mild pericardial effusion at this time too DISCHARGE INSTRUCTIONS: Discharge the patient home. Weights daily; notify Dr. Howe if any weight increase more than 5 pounds. MEDICATIONS AT DISCHARGE: Lisinopril 20mg PO daily Coreg 12.5mg PO twice a day Bevespi Keflex 500mg twice a day NEW PRESCRIPTIONS: Lasix 40mg PO daily Crestor 10mg PO daily Protonix 40mg PO daily DIET INSTRUCTIONS: Heart healthy ACTIVITY: As much as tolerated. Can resume regular activity. DISEASE SPECIFIC EDUCATION: Hypertension emergency and the risk of stroke and coronary artery disease been discussed and verbalized understanding. Medication compliance been discussed with the patient everyday HOSPITAL COURSE: Sonia Chacon who is a 56 year old female came to the emergency room shortness of breath, headache, dizziness and not able to sleep properly. The patient was seen in the emergency room by ER physician blood pressure was 190/ 35. Dr. Ayon saw the patient in the emergency room. The patient was given Clonidine, Lasix IV push given. The patient was found to be in acute heart failure with BNP 3096. ABG done pH 7.49, pCO2 32.6, pO2 50. CT chest obtained which showed diffused ground glass opacities. No evidence of pulmonary embolism. CHF with diffused bilateral mixed alveolar and interstitial edema, trace bilateral layering pleural effusions, cardiomegaly with small to moderate sized pericardial effusion, Subcarinal adenopathy. The patient was admitted to the hospital and started on the IV antibiotics Rocephin, Lasix IV push, Clonidine 0.2 and continue the Lisinopril and Coreg. With the given treatment the patient was feeling better, shortness of breath was improved. Renal ultrasound was done which did not show any stenosis. Chest x-ray was negative. Echocardiogram was done and small pericardial effusion was seen, ejection fraction 50%. Mild hypokinetic stiff left ventricle, mild to moderate left ventricular hypertrophy. Drug screen was negative, serology negative. BUN and creatinine stayed steady. Hgb was 11.6 and 11.2 which was steady during the hospital stay. Blood pressure gradually came down 133/73 and 125/77. The patient was up and about walking. Fluid retention was resolved. The patient did have a good diurese. At that time the patient being discharged home. TIME SPENT: MORE THAN 65-70 MINUTES MTDD
== END 2017-05-19 14:10 | disposition home or self-care (01) | DRG 189 ==
LOC: ED 07:11 → SCU 09:29
PROVIDERS: ADMIT Emergency Medicine; ATTEND Emergency Medicine
DX: J96.01 Acute respiratory failure with hypoxia (principal); I50.21 Acute systolic (congestive) heart failure; I31.3 Pericardial effusion (noninflammatory); I16.1 Hypertensive emergency; J90 Pleural effusion, not elsewhere classified; I51.7 Cardiomegaly; I10 Essential (primary) hypertension; R06.02 Shortness of breath; I25.119 Atherosclerotic heart disease of native coronary artery with unspecified angina pectoris; J06.9 Acute upper respiratory infection, unspecified; E66.9 Obesity, unspecified; D64.9 Anemia, unspecified; E78.5 Hyperlipidemia, unspecified; R07.9 Chest pain, unspecified; R51 Headache; Z91.14 Patient's other noncompliance with medication regimen; Z82.49 Family history of ischemic heart disease and other diseases of the circulatory system; Z98.61 Coronary angioplasty status; Z79.899 Other long term (current) drug therapy
CPT/HCPCS: 36415; 76770; 80053; 80061; 80306; 82550; 82607; 82728; 82746; 82803; 83540; 83550; 83880; 84443; 84466; 84484; 85025; 85045; 87040; 87502; 93005; 93010; 94761; 96374; 97802; 99284

== ENCOUNTER 2017-11-17 15:49 | Outpatient (CLI) | payer OTHER | END 2017-11-17 16:06 | disposition short-term general hospital (02) | LOC: AMBL 15:49 | PROVIDERS: ATTEND Emergency Medicine | DX: R06.02 Shortness of breath (principal); R07.89 Other chest pain; R05 Cough; R33.9 Retention of urine, unspecified; R09.89 Other specified symptoms and signs involving the circulatory and respiratory systems; R03.0 Elevated blood-pressure reading, without diagnosis of hypertension; J44.9 Chronic obstructive pulmonary disease, unspecified; I50.9 Heart failure, unspecified ==

== ENCOUNTER 2017-11-24 04:16 | Outpatient (CLI) | END 2017-11-24 04:30 | disposition short-term general hospital (02) | LOC: AMBL 04:16 | PROVIDERS: ATTEND Family Medicine | DX: G89.18 Other acute postprocedural pain (principal); Z98.890 Other specified postprocedural states ==